=== PATIENT | female | born 1980 | race Caucasian/White ===

== ENCOUNTER 2017-05-01 12:10 | Emergency (ER) | payer SELFPAY ==
[~2017-05-01] VITALS: Ht 162.6 cm; Wt 61.2 kg
[2017-05-01] MEDS ORDERED: HYDROCODONE/APAP 5MG-325MG TAB PO ONE (12:30)
--- NOTE | 2017-05-01 13:55 | Diagnostic Imaging Report ---
PROCEDURE:HAND RIGHT 3 VIEWS AP \T\ LAT COMPARISON:None. INDICATIONS:TRAUMA 5TH DIGIT FINDINGS: PA view is slightly limited the tube persistently to extend fourth and fifth digits, however, there are no fractures, dislocations, lytic or blastic lesions. The bones are well-mineralized. The soft-tissues are unremarkable. CONCLUSION: No acute osseous abnormality. Lorrie Mas M.D. Dictated by: Lorrie Mas M.D. on 05/01/2017 at 14:03 Electronically approved by: Lorrie Mas M.D. on 05/01/2017 at 14:03
== END 2017-05-01 14:34 | disposition home or self-care (01) ==
LOC: ER 12:10
DX: S60.221A Contusion of right hand, initial encounter (principal); W22.09XA Striking against other stationary object, initial encounter; Y92.89 Other specified places as the place of occurrence of the external cause; X79.XXXA Intentional self-harm by blunt object, initial encounter
CPT/HCPCS: 99282

== ENCOUNTER 2017-05-07 22:30 | Emergency (ER) | payer OTHER ==
[~2017-05-07] VITALS: Ht 162.6 cm; Wt 61.2 kg
[2017-05-07 23:34] LABS: BILIRUBIN,URINE NEGATIVE (NEGATIVE); KETONES,URINE NEGATIVE (NEGATIVE); LEUKOCYTE ESTERASE ,URINE 2+ (NEGATIVE); NITRITE,URINE NEGATIVE (NEGATIVE); URINE UROBILINOGEN 0.2 mg/dL (0.2 - 1)
[2017-05-07 23:35] LABS: CLARITY,URINE CLOUDY (CLEAR); COLOR,URINE YELLOW (YELLOW); PROTEIN,URINE DIPSTICK TRACE (NEGATIVE)
[2017-05-07 23:43] LABS: WBC,URINE (MAN) >50 /HPF (0-5)
[2017-05-07 23:44] LABS: BACTERIA,URINE MODERATE /HPF; EPITHELIAL CELLS,URINE FEW /LPF; MUCUS,URINE FEW (RARE)
[2017-05-08 00:23] VITALS: BP 117/72
[2017-05-08] MEDS ORDERED: PYRIDIUM100 MG PO (00:25)
== END 2017-05-08 00:27 | disposition home or self-care (01) ==
LOC: ER 22:30
DX: R10.9 Unspecified abdominal pain (principal); N30.91 Cystitis, unspecified with hematuria; F17.210 Nicotine dependence, cigarettes, uncomplicated
CPT/HCPCS: 81001; 87086; 99283